=== PATIENT | male | born 1965 | race Caucasian/White ===

== ENCOUNTER → 2024-07-13 07:17 | Outpatient (REF) | payer BC, SELFPAY | LOC: RAD 07:17 | PROVIDERS: ATTENDING PHYSICIAN Family Medicine | DX: R33.9 Retention of urine, unspecified (principal) | CPT/HCPCS: 76770 ==

== ENCOUNTER 2024-11-02 16:31 | Inpatient (IN) | payer BC, SELFPAY ==
[2024-11-02 12:21] VITALS: BP 126/72
[2024-11-02 12:53] LABS: % Basophils 0.5 % (0-2); % Eosinophils 1.1 % (0-6); % Immature Granulocytes 0.5 % (0-0.5); % Lymphocytes 19.5 % (20.5-51.1); % Monocytes 5.4 % (1.7-9.3); Absolute Eosinophils 0.1 10^3/uL (0-0.7); Absolute Lymphocytes 1.7 10^3/uL (1.2-3.4); Absolute Monocytes 0.5 10^3/uL (0.1-0.6); Absolute Neutrophils 6.2 10^3/uL (1.4-6.5); Hematocrit 44.6 % (39.0-52.0); Hemoglobin 15.6 g/dL (13.0-18.0); Mean Corpuscular Hgb 32.8 pg (27.0-31.0); Mean Corpuscular Volume 93.9 fL (80.0-94.0); Mean Platelet Volume 11.5 fL (7.4-10.4); Nucleated Red Blood Cells % 0 % (-); Platelet Count 203 10^3/uL (130-400); Red Blood Cell Count 4.75 10^6/uL (4.70-6.10); Red Cell Dist. Width 12.6 % (11.5-14.5); White Blood Cell Count 8.5 10^3/uL (4.8-10.8)
[2024-11-02 13:10] LABS: Blood Urea Nitrogen 20 mg/dl (9-20); Calcium 10.5 mg/dl (8.4-10.2); Carbon Dioxide 22 mmol/L (22-30); Chloride 104 mmol/L (98-107); Estimated Creatinine Clearance 92 ml/min; Glucose 125 mg/dl (70-99); Lipase 252 U/L (23-300); Sodium 138 mmol/L (135-145); eGFR > 60.00
[2024-11-02 13:13] VITALS: BP 118/78
[2024-11-02] MEDS: TORADOL 30 MG IV (13:13)
[2024-11-02] MEDS: ZOFRAN 4 MG IV ×2 (13:13→18:14)
[2024-11-02] MEDS: NSS 1000 IV ×2 (13:16→18:18)
[2024-11-02 13:21] VITALS: BMI 19.2
--- NOTE | 2024-11-02 13:24 | ED.GENMED ---
History of Present Illness
General
Chief Complaint: Breathing Problem
Source: patient
Time Seen by Provider: 11/02/24 12:47
History of Present Illness
History of Present Illness:
59-year-old male with past medical history of HIV (undetectable viral load, unknown last CD4 count), anxiety and depression, history of rectal cancer, prediabetes presenting to the ER for nausea vomiting and diarrhea which began acutely at 7 AM with
patient stating he feels as if his breathing is abnormal. Patient states he is also having generalized abdominal discomfort, no relief with Pepto-Bismol and Tums. Patient describes diarrhea to be mostly watery, last episode of emesis about 15
minutes prior to getting into the hospital room, nonbloody nonbilious. Patient states he has not had any fevers although has felt febrile. No known sick contacts, recent travel or recent antibiotics. Patient is otherwise denying any chest pain,
palpitations, diaphoresis, exertional dyspnea or orthopnea.
Past History
Past History
ED Past Medical History: Cancer (Anal CA), Psychiatric (Depression) and Other ( HIV, DVT right arm)
ED Past Surgical History: Orthopedic and Other
Social History
Tobacco: Former smoker
Alcohol: None
Drug: None
Personal: Partner (Same sex, )
Living: with family
Employment: Employed
Review of Systems
Review of Systems
All Other Systems: ROS reviewed and negative except as documented in HPI and ROS
Phy Exam
Physical Exam
Physical Exam:
GENERAL: Alert , in no apparent distress, very anxious but redirectable
EYE: clear conjunctiva
NECK: Supple
ENT: mmm.
CARDIAC: Heart rate between 50 and 60 bpm
LUNGS: Clear breath sounds bilaterally, no acute respiratory distress, no wheezes/rales/rhonchi
ABDOMEN: Soft, generalized tenderness, no r/g, no cvat
NEUROLOGICAL: Alert and oriented
SKIN: Warm and dry, skin intact.
MUSCULOSKELETAL: well perfused.
PSYCH: Normal and appropriate interaction.
Scores
Heart Failure Risk
Heart Failure Risk Score: Not Applicable
Heart Score for Chest Pain Patients
STEMI patient?: Not applicable
Withdrawal Assessment of Alcohol
Withdrawal Assessment Completed?: Not applicable
Course
Orders/Labs/Results
Orders:
Orders
11/02/24 12:12
Electrocardiogram (*1) Urgent
Reason for Study: Chest Pain
EKG- Treatment ONCE
11/02/24 12:32
Basic Metabolic Panel Urgent
Complete Blood Count/With Diff Urgent
Lipase Urgent
11/02/24 13:09
0.9% Sodium Chloride 1000 ml [Nss] 1,000 ml IV BOLUS
Ketorolac [Toradol] 30 mg IV NOW STA
Ondansetron Injectable [Zofran] 4 mg IV NOW STA
11/02/24 13:18
Influenza A+B Rapid Molecular Urgent
JOSHUA Source: Nasal Swab
Specimen Description:
11/02/24 13:36
Add On- LAB Urgent
Tests Added?: magnesium
11/02/24 13:37
Add On- LAB Urgent
Tests Added?: potassium
Electrocardiogram (*1) Urgent
Reason for Study: Bradycardia / Tachycardia
EKG- Treatment ONCE
11/02/24 13:55
Comprehensive Metabolic Panel Urgent
Magnesium Urgent
Comment: ADD ON
11/02/24 14:23
Potassium Chloride 10% Elixir [KCl Elixir] 40 meq PO NOW STA
11/02/24 15:21
Norovirus by PCR Routine
JOSHUA Source: Feces/Stool
Specimen Description:
Stool Culture Routine
JOSHUA Source: Feces/Stool
Specimen Description:
Stool For WBC Routine
JOSHUA Source: Feces/Stool
Specimen Description:
11/02/24 15:22
Admit/Transfer Patient As Directed
Co-Sign Provider:
Level of Care: Inpatient admission
Assign to:: Telemetry
Physician / Group: gage simmons
Diagnosis: gastroenteritis
Reason for Telemetry: Arrhythmia
Date to Stop Telemetry: 11/05/24
Time to Stop Telemetry: 11:00
Reason for Hospitalization: gastroenteritis
bradycardia
Expected length of stay greater than two midnights?: Yes
ELOS- Estimated Length of Stay in days: 3
I certify the patient meets the requirements for IP care: Yes
PRN Pain Medication Management As Directed
May give lesser potent ordered pain med per pt: Yes
preference::
Protocol:: Medication orders for pain may be administered in a
manner that supports deferring to patient preference
when the pt is:
- Requesting an ordered lesser potent pain medication.
Least to most potent pain medications are defined
as: acetaminophen < NSAID < tramadol < opioids
(morphine, oxycodone, hydromorphone).
- Requesting a lesser dose of the same medication IF
ORDERED.
- Requesting a less intrusive route of administration
if both routes are prescribed by the provider (PO <
IV).
11/02/24 15:23
Code Status As Directed
Resuscitation Status: Full Code
11/02/24 15:36
CD4 Leukocyte Marker Profile [S] Routine
11/02/24 15:37
COVID-19 Antigen Stat
Source: Nasal Swab
11/05/24 11:00
DC Protocol for Telemetry ONCE
Abnormal Lab Results
11/02/24 11/02/24
12:32 13:55
MCH 32.8 H pg
(27.0-31.0)
MPV 11.5 H fL
(7.4-10.4)
Lymphocytes % 19.5 L %
(20.5-51.1)
Potassium 3.2 L mmol/L
(3.5-5.1)
Carbon Dioxide 21 L mmol/L
(22-30)
Creatinine 0.6 L mg/dL
(0.7-1.3)
Glucose 125 H mg/dl 120 H mg/dl
(70-99) (70-99)
Calcium 10.5 H mg/dl
(8.4-10.2)
11/02/24 12:32
11/02/24 13:55
Vital Signs
Initial and Last Documented VS:
Initial Vital Signs
Temp Pulse Resp BP Pulse Ox
97.7 F 65 20 126/72 100
11/02/24 12:21 11/02/24 12:21 11/02/24 12:21 11/02/24 12:21 11/02/24 12:21
Last Documented Vital Signs
Temp Pulse Resp BP Pulse Ox
97.7 F 54 16 118/78 99
11/02/24 12:21 11/02/24 13:45 11/02/24 13:45 11/02/24 13:13 11/02/24 13:30
MDM/Problems Addressed
Differential Diagnosis Includes:
gastroenteritis, dehydration, electrolyte abnormality, flu, no concern for cardiac complication
MDM/Problems Addressed:
59-year-old male presenting to the emergency department for evaluation of GI upset that began acutely earlier today. Patient arrives hemodynamically stable. Does appear quite anxious which I suspect is the reasoning behind patient's self-reported
respiratory abnormality. Patient has normal respiratory rate, normal oxygen and heart rate is within normal limits. I suspect patient's symptoms are all related to GI upset which is likely gastroenteritis. Will treat symptomatically with fluids,
Zofran and Toradol. Reassessment following
Chronic conditions affecting care: Immunosuppressed (HIV positive but reports that he has an undetectable viral load)
*Pulse Oximetry
Patient hypoxic: no
*Critical Care Note
Total Time (30-74mins, 75-104mins- exclusive of procedures): Not Applicable
Patient Management
Discussion with other providers: Hospitalist and Plant Specialist
Escalation/DeEscalation of care consider admission/obs:
Patient's potassium returned at 3.2 which is likely from vomiting and diarrhea. Orally repleted. Patient had continued episodes of bradycardia while being monitored. Heart rate as low as 32 bpm. Patient appeared to be somewhat symptomatic during
these episodes. Notified cardiology via [place] text, Dr. Leblanc, who felt symptoms could be related to vagal events from patient's vomiting. Given these episodes were happening quite frequently will admit to hospitalist team for telemetry
monitoring and cardiology consult as needed. Patient in agreement with plan. Hospitalist team accepts.
ED Attending Note
-
Portions of this chart may have been created with voice recognition software.� Occasional wrong word or��sound alike� substitutions may have occurred due to the inherent limitations of voice recognition software.
Discharge Plan
Departure
Patient Disposition: Admit
Date of Disposition: 11/02/24
Time of Disposition: 15:01
Presentation/result/management discussed w/ accepting MD/DO: Hospitalist
Discharge Problem:
Nausea vomiting and diarrhea, Bradycardia
Interventions
Interventions:
*Risk Screen - Suicide Last Done: 11/02/24 12:25
*General Assessment Last Done: 11/02/24 12:25
*Neglect/Abuse Screening Last Done: 11/02/24 12:25
*ED- Fall Risk Assessment Last Done: 11/02/24 12:25
*ED COVID-19 Vaccine History Last Done: 11/02/24 12:25
ED- Cardiac Assessment Last Done: 11/02/24 13:23
ED- Pulmonary Assessment Last Done: 11/02/24 13:57
[2024-11-02 14:00] VITALS: BP 114/95
[2024-11-02 14:21] LABS: ALT (SGPT) 34 U/L (0-50); AST (SGOT) 24 U/L (17-59); Albumin 4.3 g/dl (3.5-5.0); Alkaline Phosphatase 64 U/L (38-126); Blood Urea Nitrogen 19 mg/dl (9-20); Calcium 9.5 mg/dl (8.4-10.2); Carbon Dioxide 21 mmol/L (22-30); Chloride 106 mmol/L (98-107); Estimated Creatinine Clearance 107 ml/min; Glucose 120 mg/dl (70-99); Magnesium 1.6 mg/dl (1.6-2.3); Potassium 3.2 mmol/L (3.5-5.1); Sodium 138 mmol/L (135-145); Total Bilirubin 1.2 mg/dl (0.2-1.3); Total Protein 6.6 g/dl (6.3-8.2); eGFR > 60.00
[2024-11-02] MEDS: KCL ELIXIR 40 MEQ PO (14:57)
[2024-11-02 15:00] VITALS: BP 130/67
--- NOTE | 2024-11-02 15:04 | HPS.HSE ---
Family Physician
-
Family Physician: Hortensia Mcclelland
Chief Complaint
-
n/v/d
History of Present Illness
59-year-old male with past medical history of HIV (undetectable viral load, unknown last CD4 count), anxiety and depression, history of rectal cancer, prediabetes presenting to the ER for nausea vomiting and diarrhea which began acutely at 7 AM. he
vomiting 8-10 times along with diarrhea. denied any sick contact or food from outside. Patient states he is also having generalized abdominal discomfort, no relief with Pepto-Bismol and Tums. Patient describes diarrhea to be mostly watery,
nonbloody nonbilious. Patient states he has not had any fevers, stated chills, denied recent travel or recent antibiotics. patient denied chest pain, sob. denied dysuria or hematuria. he is complaining of WEN and dizzy.
Patient received Toradol, normal saline, Zofran and potassium in ER.Admitting for further manage
Medical History
Past Medical History
Past Medical History: Reports Other
Additional Past Medical History:
Hemorrhoidal skin tag
HIV
Dysphagia
Anal cancer
Past Surgical History: Reports Other
Additional Past Surgical History:
Hernia repair
Social History
Tobacco: Former Smoker
Alcohol: None
Drug: Other (Marijuana)
Family History
Family History: Not pertinent
Allergies / Home Medications
Allergies reflects when Allergies were last updated in [facility].
Home Medications with original date entered in [facility]
Allergy/Medication List:
Allergies
Allergy/AdvReac Type Severity Reaction Status Date / Time
No Known Allergies Allergy Verified 04/21/22 13:38
Home Medications
dicyclomine 10 mg capsule 20 mg PO TID stomach 04/21/22
emtricitabine 200 mg-rilpivirine 25 mg-tenofovir alafenam 25 mg tablet (Odefsey) 1 tab PO DAILY hiv 04/21/22
fluoxetine 20 mg tablet 20 mg PO HS Mental Health/Anxiety 04/21/22
multivitamin 1 tab PO DAILY Supplement 04/21/22
trazodone 50 mg tablet 50 mg PO HS Mental Health/Anxiety 04/21/22
famotidine 40 mg tablet 40 mg PO HS #30 tabs 04/24/22
Review of Systems
-
Constitutional: Reports No Symptoms
EENT: Reports No Symptoms
Respiratory: Reports No Symptoms
Cardiac: Reports No Symptoms
Abdomen/GI: Reports Abdominal Pain, Nausea, Vomiting and Diarrhea
: Reports No Symptoms
Musculoskeletal: Reports No Symptoms
Skin: Reports No Symptoms
Neurological: Reports No Symptoms
Endocrine: Reports No Symptoms
Hematologic/Lymphatic: Reports No Symptoms
Psych: Reports No Symptoms
Physical Exam
Vital Signs
Vital Signs
Temp Pulse Resp BP Pulse Ox
97.7 F 54 16 118/78 99
11/02/24 12:21 11/02/24 13:45 11/02/24 13:45 11/02/24 13:13 11/02/24 13:30
Physical Exam
General: Well Developed, Well Nourished and No Apparent Distress
HEENT: NormoCephalic, Moist mucous membranes and Atraumatic
Respiratory: Clear
Cardiac: S1/S2 and Regular Rhythm; No Murmur or Rub
GI: Soft, Non Distended, Normal Bowel Sounds and Tender; No Organomegaly
Rectal: Deferred by Provider
Musculoskeletal: No Clubbing, No Cyanosis and No Edema
Skin: No Rash
Neuro: AO x 3 and Nonfocal/grossly intact
Psych: Calm
Laboratory Results
-
11/02/24 12:32
11/02/24 13:55
Laboratory Results
Total Bilirubin 1.2 mg/dl (0.2-1.3) 11/02/24 13:55
AST 24 U/L (17-59) 11/02/24 13:55
ALT 34 U/L (0-50) 11/02/24 13:55
Alkaline Phosphatase 64 U/L (38-126) 11/02/24 13:55
Lipase 252 U/L (23-300) 11/02/24 12:32
Data Reviewed
-
Lab Data: Labs Reviewed by me
Impression/Plan
-
#Nausea vomiting diarrhea Likely gastroenteritis
-Flu negative
-COVID pending
-Obtain stool for norovirus, culture
-N.p.o. with sips of clears, advance as tolerated
-Fluids continued for hydration
# Bradycardia likely vasovagal from n/v
-Heart rate as low as 32
-EKG was NSR
-defer cards consult d/w straight line edger.
#Hypokalemia likely from nausea vomiting
-K3.2
-Repleted in ER
-BMP in a.m.
#hxt of HIV, undetectable VL on ART
-currently on Odefsey
#Anxiety/depression
- on duloxetine
Hx of Anal Cancer
s/p XRT with chemo
#DVT prophylaxis
-Lovenox subcu
# CODE STATUS
-Full code
--- NOTE | 2024-11-02 15:53 | W.PN.UPDATE ---
Addendum entered and electronically signed by Elvis Ramos MD 11/02/24 17:46:
[facility] Card called admitting hospitalist and discussed ref to SB and consultation.
We agree Sinus leatha suspect due to parasympathetic overtone due to pain and acute GE. Prior HX vasovagal syncope, sinus bradycardia , not on BB
- agree to hold off Card consult for now
- will observe SB on TLM
- await TSH
Original Note:
Update Note
Progress Note Update
This note serves as an addendum to the H&P by manufacturing technician BRIDGETTE
Priscila AMINA
I saw and examined the patient.
The CERTIFIED DENTAL ASSISTANT or PA's note was reviewed and I agree with the note.
Comment:
HPI
59M HX HIV (undetectable viral load, unknown last CD4 count), vasovagal syncope, sinus bradycardia , not on BB , anxiety and depression, HX rectal cancer, prediabetes seen at ER
- abrupt onset of vomiting and non bloody watery frequent( 8-10 times) diarrhea which began at 7 AM
- associated wiht generalized abdominal discomfort, no relief with Pepto-Bismol and Tums.
- last episode of emesis about 15 minutes prior to getting into the hospital room, nonbloody nonbilious.
ROS:
- not had any fevers although has felt febrile.
- no known sick contacts
- no recent travel
- no recent antibiotics.
- denying any chest pain, palpitations, diaphoresis, exertional dyspnea or orthopnea.
PHX; see above
Reviewed VS:
Selected Entries
11/02/24
12:21 11/02/24
13:00 11/02/24
13:30
Temp 97.7 F
Pulse 65 56 39
Blood pressure 126/72
SaO2 100
Oxygen Mode of Delivery Room air
Laboratory Tests
11/02/24 11/02/24
13:55 15:09
Sodium 138
Potassium 3.2 L
Chloride 106
Carbon Dioxide 21 L
BUN 19
Creatinine 0.6 L
eGFR > 60.00
AST 24
ALT 34
SARS-CoV-2 Antigen Pending
NEG Flu A & B
Pending Covid
Last hospitalist admission:
DATE OF ADMISSION: 04/21/2022 - DATE OF DISCHARGE: 04/24/2022
FINAL DIAGNOSIS:
1. Acute abdominal pain.
2. Recurrent vomiting.
3. Persistent diarrhea.
4. History of HIV with negative viral load on chronic Odefsey.
5. Anxiety, depression.
6. History of anal cancer.
ASSESSMENT & PLAN
Acute GE
DDX: viral, bacteria, OIs, ADES of ART Tx
Reports underlying HIV undetectable viral load, unknown last CD4 count
- Stool studies; Ashley Del Castillo,
- pending Covid
- Sips pof clear
- IVF NS
- s/p IV K Grant supplement
- observe BMP in AM
-PRN Toradol Analgesia for abdominal pain
-ID consult
HX HIV, undetectable VL on ART
- currently on Odefsey
- check CD4 count
- Await ID consult
Sinus leatha suspect due to parasympathetic overtone due to pain and acute GE
HX vasovagal syncope, sinus bradycardia , not on BB
- check TSH
- TLM Monitor
- Fall precaution
- [facility] card consulted
Anxiety/depression
- on duloxetine
HX Anal Cancer 5 yrs ago
- s/p XRT with chemo
DVT Px: LMWH
Code: Full
IP TLM
[2024-11-02 16:36] LABS: COVID-19 Antigen Negative (Negative)
[2024-11-02] MEDS: DILAUDID 0.5 MG IV (18:13)
[2024-11-02 20:13] VITALS: BP 117/64
[2024-11-02 20:15] VITALS: BMI 19.3
[2024-11-02] MEDS: LOVENOX 40 MG SC (20:43)
[2024-11-02] MEDS: BENTYL 20 MG PO ×2 (20:44→22:21)
[2024-11-02] MEDS: NSS (PRESERVATIVE FREE) 10 ML IV (20:44)
[2024-11-02] MEDS: PROTONIX IV 40 MG IV (20:44)
[2024-11-02] MEDS: DESYREL 50 MG PO (22:21)
[2024-11-02] MEDS: PROZAC 20 MG PO (22:21)
[2024-11-03] VITALS: BP 95/51
[2024-11-03 03:28] VITALS: BP 95/65
[2024-11-03] MEDS: NSS 1000 IV (04:34)
[2024-11-03 06:43] LABS: Blood Urea Nitrogen 23 mg/dl (9-20); Calcium 8.9 mg/dl (8.4-10.2); Carbon Dioxide 25 mmol/L (22-30); Chloride 109 mmol/L (98-107); Estimated Creatinine Clearance 70 ml/min; Glucose 101 mg/dl (70-99); HDL Cholesterol 41 mg/dl; LDL Cholesterol, Calculated 123 mg/dl; Potassium 4.7 mmol/L (3.5-5.1); Sodium 142 mmol/L (135-145); Total Cholesterol 193 mg/dl (50-199); Triglyceride 149 mg/dl (10-149); Very Low Density Lipoprotein 29 mg/dl (0-30); eGFR > 60.00
[2024-11-03 07:00] VITALS: BP 108/62
[2024-11-03 07:01] LABS: TSH Reflex To Free T4 1.18 uIU/ml (0.47-4.68)
[2024-11-03] MEDS: BENTYL 20 MG PO (09:03)
[2024-11-03] MEDS: NSS (PRESERVATIVE FREE) 10 ML IV (09:03)
[2024-11-03] MEDS: PROTONIX IV 40 MG IV (09:04)
--- NOTE | 2024-11-03 09:43 | CM ---
CM met with pt at bedside.
Pt resides with spouse and dog Fco in a 2SH. Ind prior to admission with amb and adl's using no AD/DME.
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
No HC or SNF hx.
Confirmed PCP is Hortensia Mcclelland and pharmacy is [facility].
Reports + prescription plan.
Discharge dispo home no needs.
[2024-11-03 11:00] VITALS: BP 125/57
--- NOTE | 2024-11-03 12:02 | CON.ID ---
Consultation
-
Date/Time Consultation Requested: 11/02/24 22:38
Date/Time Consultation Performed: 11/03/24 12:02
Requesting Provider: NATASHA Trevizo
Performing Provider: Dr Mccartney
Reason for Consultation: hxt of HIV, presented with n/v/d. gastroenteritis.
Chief Complaint / Past History
Chief Complaint
nausea, vomiting diarrhea
History of Present Illness
Mr Boyce is a 59 year old male living with HIV on Odefsey follows with Dr Muñoz with 100% compliance reported, last viral load 01/25/24 suppressed and CD4 same day 384 on annual follow up, also IBS and rectal cancer who presented here 11/02 for acute
nausea, vomiting, diarrhea and abdominal pain which began at about 7AM. Diarrhea is watery, nonbloody. No fevers or chills. No recent ravel or antibiotics. No sick contacts or questionable foods.
Since arrival here no fevers, bp overall stable some borderline hypotension noted, wbc 8.5, hgb 15.6, plt 203, no L shift, na 138, cr 0.7, lfts wnl, norovirus, negative. overnight the nausea and vomiting resolved. Abdominal pain resolved. No
complaitns
Past History
Additional Past Medical History:
Hemorrhoidal skin tag
HIV
Dysphagia
Anal cancer
Additional Past Surgical History:
Hernia repair
Allergy History:
No Known Allergies Allergy (Verified 04/21/22 13:38)
Medications Reviewed: Yes
Social History
Tobacco: Former Smoker
Alcohol: None
Drug: Marijuana
Review of Systems
Vital Signs
Temp Pulse Resp BP Pulse Ox
98.1 F 62 16 108/62 98
11/03/24 07:00 11/03/24 07:00 11/03/24 07:00 11/03/24 07:00 11/03/24 07:00
Physical Exam
Physical Exam
Constitutional: No Acute Distress
Lab / Diagnostic Study Results
11/02/24 12:32
11/03/24 05:16
Abs Immat Gran (auto) 0.0 10^3/uL (0-0.05) 11/02/24 12:32
Absolute Neuts (auto) 6.2 10^3/uL (1.4-6.5) 11/02/24 12:32
Absolute Lymphs (auto) 1.7 10^3/uL (1.2-3.4) 11/02/24 12:32
Absolute Monos (auto) 0.5 10^3/uL (0.1-0.6) 11/02/24 12:32
Absolute Basos (auto) 0.0 10^3/uL (0-0.2) 11/02/24 12:32
Immature Gran % 0.5 % (0-0.5) 11/02/24 12:32
Neutrophils % 73.0 % (42.2-75.2) 11/02/24 12:32
Lymphocytes % 19.5 % (20.5-51.1) L 11/02/24 12:32
Monocytes % 5.4 % (1.7-9.3) 11/02/24 12:32
Eosinophils % 1.1 % (0-6) 11/02/24 12:32
Basophils % 0.5 % (0-2) 11/02/24 12:32
Microbiology Results
Micro:
11/03/24 07:06 - Final
Feces/Stool Negative for Norovirus GI and GII.
11/03/24 07:06 Salmonella/Shigella Culture - Pending
Feces/Stool Campylobacter Culture - Pending
Shiga Toxin Test - Pending
Stool Leukocytes - Pending
11/02/24 13:18 Influenza Types A & B (JUAQUIN) - Final
Nasal Swab Negative for Influenza A & B, NAAT
Negative results must be combined with clinical observations
and patient history.
Nucleic Acid Amplification test (NAAT)performed on the
[employer] ID NOW platform.
Assessment / Plan
Gastroenteritis
HIV on [place] follows with Dr Muñoz with 100% compliance reported, last viral load 01/25/24 suppressed and CD4 same day 384
- canceled CD4 count - note that patients with acute infection will typically have artificially low CD4 counts
- norovirus negative
- routine stool culture in progress
- covid ag negative
- c/w ivan, patient reports vomiting resolved and he is tolerating pills
- stable for dc from ID perspective
--- NOTE | 2024-11-03 13:50 | W.DCSUMMARY ---
Discharge Summary
Discharge Data
Date of Admission: 11/02/24
Date of Discharge: 11/03/24
-
Pending Results: No
Hospital Course
59-year-old male with past medical history of HIV (undetectable viral load, unknown last CD4 count), anxiety and depression, history of rectal cancer, prediabetes
Presented with nausea and vomiting that was associated with abdominal pain and was unable to keep anything down. Admitted for IVF. Now improved. Will DC home
Seen and examined the day of discharge. States that the diarrhea has completely resolved. No further abdominal pain. States that the hydration really helped him and he feels significantly better. He is excited to get out of the hospital today.
NAD
Scleral Anicteric
MMM
No JVD
CTABL
RRR, S1/S2
Soft, NT, ND, BS+
Warm, Dry
AAOx3
Calm
Discharge Plan
-
Patient Disposition: Home (Routine Discharge)
Discharge Diagnosis/Procedures: gastroenteritis
Condition: Good
Additional Diets: Low residue diet
Activity: As tolerated
Activity Restrictions/Additional Instructions:
Presented with nausea and vomiting that was associated with abdominal pain and was unable to keep anything down. Admitted for IVF. Now improved. Will DC home
Referrals:
Hortensia Mcclelland DO [Family Provider] -
Prescriptions:
Continued
trazodone 50 mg Tablet
50 mg PO HS
fluoxetine 20 mg Tablet
20 mg PO HS
Odefsey 200-25-25 mg tablet
1 tab PO DAILY
therapeutic multivitamin Tablet
1 tab PO DAILY
bismuth subsalicylate [Pepto-Bismol] 262 mg/15 mL Suspension
524 mg PO DAILYPRN PRN (Reason: gi issues)
Discharge Orders:
Discharge Patient (As Directed); Ordered 11/03/24
Ordered By: Donato Coe
Discharge Date and Time
Discharge Date/Time: 11/03/24 13:47
Print Language: ARMENIAN
[2024-11-04 17:24] LABS: CD4 % of Cells Analyzed 35 % (32-64); CD4 Absolute Count 296 cells/uL (430-1800)
== END 2024-11-03 13:47 | disposition home or self-care (01) | DRG 392 ==
LOC: 4 WEST ACU 16:31
PROVIDERS: Physician Assistant Medical; Registered Nurse; Student in an Organized Health Care Education/Training Program; ADMITTING PHYSICIAN Internal Medicine; ATTENDING PHYSICIAN Hospitalist; CONSULT PHYSICIAN Student in an Organized Health Care Education/Training Program; EMERGENCY PHYSICIAN Emergency Medicine; FAMILY PHYSICIAN Family Medicine
DX: K52.9 Noninfective gastroenteritis and colitis, unspecified (principal); Z21 Asymptomatic human immunodeficiency virus [HIV] infection status; F32.A Depression, unspecified; F41.9 Anxiety disorder, unspecified; E87.6 Hypokalemia; R55 Syncope and collapse; R00.1 Bradycardia, unspecified; Z85.048 Personal history of other malignant neoplasm of rectum, rectosigmoid junction, and anus; Z87.891 Personal history of nicotine dependence; Z79.899 Other long term (current) drug therapy; Z92.3 Personal history of irradiation
CPT/HCPCS: 80048; 80053; 80061; 83690; 83735; 84443; 85025; 86361; 87045; 87046; 87077; 87427; 87502; 87798; 87811; 89055; 93005; 96361; 96374; 96375; 99285